=== PATIENT | female | born 1990 | race Caucasian/White ===

== ENCOUNTER → 2021-02-04 08:54 | Outpatient (CLI) | payer OTHER, SELFPAY ==
[2021-01-02 14:37] VITALS: BMI 33.6
[2021-02-04 10:24] LABS: hCG Titer Quant., Serum 411 mIU/mL (1-3)
[2021-02-04 10:29] LABS: Cholesterol 195 mg/dL (200); Glucose 83 mg/dL (74-106); High Density Lipoprotein 52 mg/dL; Thyroid Stim Hormone (TSH) 3.21 uIU/mL (0.358-3.74); Triglycerides 90 mg/dL; Very Low Density Lipoprotein 18 mg/dL (5-40)
[2021-02-06 09:01] LABS: Hepatitis C Antibody Non-Reactive (Nonreactive); Rubella IgG Reactive (Nonreactive)
== END ==
PROVIDERS: Nurse Practitioner Women's Health; PCP Internal Medicine; Referring Provider Obstetrics & Gynecology; Visit Provider Obstetrics & Gynecology
DX: E28.2 Polycystic ovarian syndrome (principal)
CPT/HCPCS: 36415; 80061; 82947; 84443; 84702; 86762; 86803

== ENCOUNTER → 2021-02-07 08:58 | Outpatient (CLI) | payer OTHER, SELFPAY ==
[2021-01-02 14:37] VITALS: BMI 33.6
[2021-02-07 10:14] LABS: hCG Titer Quant., Serum 1412 mIU/mL (1-3)
== END ==
PROVIDERS: PCP Internal Medicine; Visit Provider Nurse Practitioner Women's Health
DX: Z34.90 Encounter for supervision of normal pregnancy, unspecified, unspecified trimester (principal)
CPT/HCPCS: 36415; 84702

== ENCOUNTER → 2021-03-15 | Outpatient (CLI) | payer OTHER, SELFPAY ==
[2021-03-15 09:20] VITALS: BMI 33.6
[2021-03-15 11:34] LABS: Amphetamine Urine VISTA NEGATIVE (<1000 ng/mL); Barbiturate Urine VISTA NEGATIVE (< 200 ng/mL); Benzodiazepine Urine VISTA NEGATIVE (< 200 ng/mL); Cocaine Urine VISTA NEGATIVE (< 300 ng/mL); Ecstacy Urine VISTA POSITIVE (< 500 ng/mL); Methadone Urine VISTA NEGATIVE (< 300 ng/mL); PCP Urine VISTA NEGATIVE (< 25 ng/mL); THC Urine VISTA NEGATIVE (< 50 ng/mL); Vista UDS pH Range 5
[2021-03-17 20:08] LABS: Chlamydia By Nucleic Acid AMP Negative (Negative)
[2021-03-17 20:33] LABS: Gonococcus By Nucleic Acid AMP Negative (Negative)
== END | disposition home or self-care (01) ==
PROVIDERS: PCP Internal Medicine; Visit Provider Obstetrics & Gynecology
DX: Z34.91 Encounter for supervision of normal pregnancy, unspecified, first trimester (principal); Z3A.10 10 weeks gestation of pregnancy
CPT/HCPCS: 80307; 87086; 87088; 87491; 87591

== ENCOUNTER → 2021-03-23 07:35 | Outpatient (CLI) | payer OTHER, SELFPAY ==
[2021-03-15 09:20] VITALS: BMI 33.6
[2021-03-23 08:46] LABS: NATERA MAILED SPECIMEN
[2021-03-23 08:47] LABS: Absolute Lymphocyte Count 2.07 X10^3/uL (0.83-4.51); Absolute Neutrophil Count 7.3 X10^3/uL (2.0-7.7); Basophil# 0.06 X10^3/uL; Basophil% 0.6 % (0-1); Eosinophil# 0.19 X10^3/uL; Eosinophils% 1.9 % (0-5); Hematocrit 41.5 % (37-47); Lymphocyte # 2.07 X10^3/ul (0.83-4.51); Lymphocyte % 20.4 % (19-41); Mean Corp Hgb Conc 33.7 g/dL (32-36); Mean Corpuscular Hgb 29.7 pg (27.0-32.0); Mean Corpuscular Volume 88.1 fL (81-99); Mean Platelet Vol. 8.9 fl (6.2-12.0); Monocyte% 4.9 % (0-10); NRBC Flagged by Analyzer 0 % (0-5); Neutrophil # 7.28 X10^3/uL (2.7-7.7); Neutrophil % 71.7 % (47-70); Platelet Count 404 K/mm3 (150-450); RBC Distribution Width CV 12.4 % (11.6-14.6); RBC Distribution Width SD 40.3 fl (35.1-43.9); Red Blood Count 4.71 M/mm3 (4.2-5.4); White Blood Count 10.2 K/mm3 (4.4-11.0)
[2021-03-23 09:15] LABS: Glucose Challenge Gest 1H 50g 110 mg/dL (70-140)
[2021-03-23 10:22] LABS: HIV - WCH Non-Reactive (Nonreactive); Hepatitis B Surface Antigen Non-Reactive (Nonreactive); Hepatitis C Antibody Non-Reactive (Nonreactive); Rubella IgG Reactive (Nonreactive); Syphilis Antibodies Non-reactive
== END ==
PROVIDERS: PCP Internal Medicine; Referring Provider Obstetrics & Gynecology; Visit Provider Obstetrics & Gynecology
DX: Z34.81 Encounter for supervision of other normal pregnancy, first trimester (principal)
CPT/HCPCS: 36415; 82950; 85025; 86703; 86762; 86780; 86803; 86850; 86900; 86901; 87340

== ENCOUNTER → 2021-04-07 | Outpatient (CLI) | payer OTHER, SELFPAY ==
[2021-04-07 11:40] VITALS: BMI 33.6
== END | disposition home or self-care (01) ==
LOC: LABSPEC 12:43
PROVIDERS: PCP Internal Medicine; Visit Provider Obstetrics & Gynecology
DX: Z34.01 Encounter for supervision of normal first pregnancy, first trimester (principal)
CPT/HCPCS: 87086; 87088

== ENCOUNTER → 2021-05-18 07:52 | Outpatient (CLI) | payer OTHER, SELFPAY ==
--- NOTE | 2021-05-18 07:58 | US_ITS ---
STUDY: SECOND AND THIRD TRIMESTER OBSTETRICAL ULTRASOUND REASON FOR EXAM: Female, 31 years old anatomy LMP: 01/02/2021. TECHNIQUE: Transabdominal and Transvaginal TECHNICAL QUALITY: Adequate. PRIOR ULTRASOUND: None. FINDINGS: There is a single intrauterine fetus. The fetus is in a variable presentation. There is demonstrated cardiac activity with a heart rate of 148 bpm. There is a normal amniotic fluid volume. The largest amniotic fluid pocket measures 4.8 cm x 4.3 cm. The amniotic fluid index (RYANN) is within normal limits. The placenta is 7 There are Grade 0 placental changes. The cervix measures 4.8 cm in length. The bilateral adnexal regions are normal. BIOMETRY: BPD: 4.3 cm: 19 weeks, 0 days HC: 16.4 cm: 19 weeks, 0 days AC: 13.8 cm: 19 weeks, 1 days FL: 3.0 cm: 19 weeks, 2 days CI: 78% FL/BPD: 70% FL/HC: FL/AC: 22% HC/AC: 1.18% age by current US: 19 weeks, 2 days. OLEKSANDR by current US: 10/10/2021. Estimated weight: 24 grams, +/- 43 grams, 36 %. Age by LMP: 19 weeks, 3 days. OLEKSANDR by LMP: 10/09/2021. ANATOMY: Gender: Male Cranium: Normal lateral ventricles. Normal choroid plexus. Normal cerebellum. Normal cisterna magna. Normal face, nose and lips. Chest: The heart is non-visualized. Abdomen/Pelvis: Normal diaphragm. Normal stomach. Normal abdominal wall. Normal cord insertion. Normal 3 vessel cord. Normal kidneys. Normal bladder. Spine: Normal cervical spine. Normal thoracic spine. Normal lumbar spine. Normal sacrum. Extremities: Normal bilateral upper extremities. Normal bilateral lower extremities. IMPRESSION: Single live uterine gestation with mean gestational age of 19 weeks and 2 days. The four-chamber view of the heart was not visualized at this time. Electronically Signed: Krzysztof Crawford MD at 12:33 EDT , Service support , STUDY: FIRST TRIMESTER OBSTETRICAL ULTRASOUND REASON FOR EXAM: Female, 31 years old anatomy LMP: 01/02/2021 TECHNIQUE: Transvaginal TECHNICAL QUALITY: Adequate. PRIOR ULTRASOUND: None. FINDINGS: Transvaginal imaging for measurement of the cervical length. The cervical length measures 4.8 cm. US/OB Anatomy Scan IMPRESSION: Cervical length measures 4.8 cm. Electronically Signed: Krzysztof Crawford MD at 12:40 EDT , Service support ,
== END ==
PROVIDERS: PCP Internal Medicine; Referring Provider Obstetrics & Gynecology; Visit Provider Obstetrics & Gynecology
DX: Z34.91 Encounter for supervision of normal pregnancy, unspecified, first trimester (principal); Z3A.13 13 weeks gestation of pregnancy
CPT/HCPCS: 76805; 76817

== ENCOUNTER → 2021-06-14 07:49 | Outpatient (CLI) | payer OTHER, SELFPAY ==
--- NOTE | 2021-06-14 07:55 | US_ITS ---
STUDY: SECOND AND THIRD TRIMESTER OBSTETRICAL ULTRASOUND - LIMITED REASON FOR EXAM: Female, 31 years old anatomy follow up for 4 chamber heart views LMP: 01/02/2021. PRIOR ULTRASOUND: Comparison is made with prior study dated 05/18/2021. TECHNIQUE: Transabdominal TECHNICAL QUALITY: Adequate. FINDINGS: There is a single intrauterine fetus. The fetus is in an transverse lie with the head on the maternal left side. There is demonstrated cardiac activity with a heart rate of 140 bpm. There is a normal amniotic fluid volume. The largest amniotic fluid pocket measures 6.6 cm x 6.6 cm. The amniotic fluid index (RYANN) is within normal limits. The placenta is posterior in location and is not low lying. There are Grade 0 placental changes. The cervix measures 4.4 cm in length. The 4 chamber view was obtained. This is within normal limits. US/OB Limited (No Biometrics) IMPRESSION: Unremarkable 4 chamber view of the fetus. Electronically Signed: Krzysztof Crawford MD at 15:43 EDT , Service support ,
== END ==
PROVIDERS: PCP Internal Medicine; Referring Provider Obstetrics & Gynecology; Visit Provider Obstetrics & Gynecology
DX: Z34.01 Encounter for supervision of normal first pregnancy, first trimester (principal)
CPT/HCPCS: 76815

== ENCOUNTER → 2021-06-30 08:43 | Outpatient (CLI) | payer OTHER, SELFPAY ==
[2021-06-30 09:29] LABS: Absolute Lymphocyte Count 2.38 X10^3/uL (0.83-4.51); Absolute Neutrophil Count 11.1 X10^3/uL (2.0-7.7); Basophil# 0.07 X10^3/uL; Basophil% 0.5 % (0-1); Eosinophils% 1.3 % (0-5); Hemoglobin 13.2 g/dL (12.0-15.0); Lymphocyte # 2.38 X10^3/ul (0.83-4.51); Mean Corp Hgb Conc 34.7 g/dL (32-36); Mean Corpuscular Hgb 30.3 pg (27.0-32.0); Mean Corpuscular Volume 87.2 fL (81-99); Mean Platelet Vol. 8.4 fl (6.2-12.0); Monocyte# 0.93 X10^3/uL; Monocyte% 6.3 % (0-10); NRBC Flagged by Analyzer 0 % (0-5); Neutrophil # 11.05 X10^3/uL (2.7-7.7); Neutrophil % 74.6 % (47-70); Platelet Count 444 K/mm3 (150-450); RBC Distribution Width CV 13.2 % (11.6-14.6); RBC Distribution Width SD 42.5 fl (35.1-43.9); Red Blood Count 4.36 M/mm3 (4.2-5.4); White Blood Count 14.8 K/mm3 (4.4-11.0)
[2021-06-30 09:59] LABS: Glucose Challenge Gest 1H 50g 111 mg/dL (70-140)
[2021-06-30 13:36] LABS: Amphetamine Urine VISTA NEGATIVE (<1000 ng/mL); Barbiturate Urine VISTA NEGATIVE (< 200 ng/mL); Benzodiazepine Urine VISTA NEGATIVE (< 200 ng/mL); Cocaine Urine VISTA NEGATIVE (< 300 ng/mL); Ecstacy Urine VISTA POSITIVE (< 500 ng/mL); Methadone Urine VISTA NEGATIVE (< 300 ng/mL); PCP Urine VISTA NEGATIVE (< 25 ng/mL); THC Urine VISTA NEGATIVE (< 50 ng/mL); Vista UDS pH Range 5
== END ==
PROVIDERS: PCP Internal Medicine; Referring Provider Obstetrics & Gynecology; Visit Provider Obstetrics & Gynecology
DX: Z34.01 Encounter for supervision of normal first pregnancy, first trimester (principal); Z13.1 Encounter for screening for diabetes mellitus
CPT/HCPCS: 36415; 80307; 82950; 85025

== ENCOUNTER → 2021-07-28 | Outpatient (CLI) | payer OTHER, SELFPAY ==
[2021-07-28 13:43] LABS: Protein, Urine (Random) 13.6 mg/dL (<11.9); Protein:Creat Ratio 177 mg/g CRE (0-200)
== END | disposition home or self-care (01) ==
LOC: LAB 12:50 → LABSPEC 12:54
PROVIDERS: PCP Internal Medicine; Referring Provider Obstetrics & Gynecology; Visit Provider Obstetrics & Gynecology
DX: O16.9 Unspecified maternal hypertension, unspecified trimester (principal); Z3A.00 Weeks of gestation of pregnancy not specified
CPT/HCPCS: 82570; 84156

== ENCOUNTER 2021-09-15 14:07 | Outpatient (CLI) | payer OTHER, SELFPAY | END 2021-09-15 23:59 | disposition home or self-care (01) | LOC: LABSPEC 11-21 14:07 | PROVIDERS: PCP Internal Medicine; Visit Provider Obstetrics & Gynecology | DX: Z34.01 Encounter for supervision of normal first pregnancy, first trimester (principal) | CPT/HCPCS: 87081 ==

== ENCOUNTER 2021-09-18 14:53 | Outpatient (CLI) | payer OTHER, SELFPAY ==
--- NOTE | 2021-09-18 15:04 | US_ITS ---
STUDY: SECOND AND THIRD TRIMESTER OBSTETRICAL ULTRASOUND - LIMITED REASON FOR EXAM: Female, 31 years old growth LMP: 01/02/2021. PRIOR ULTRASOUND: Comparison is made with prior examination dated 06/14/2021. TECHNIQUE: Transabdominal TECHNICAL QUALITY: Adequate. FINDINGS: There is a single intrauterine fetus. The fetus is in a cephalic presentation. There is demonstrated cardiac activity with a heart rate of 153 bpm. There is a normal amniotic fluid volume. The largest amniotic fluid pocket measures 7.8 cm x 4.5 cm. The amniotic fluid index (RYANN) is 23.06 cm. The placenta is posterior in location and is not low lying. There are Grade 2 placental changes. The cervix was not measured due to the head position. BIOMETRY: BPD: 9.32 cm: 37 weeks, 6 days HC: 34.51 cm: 39 weeks, 6 days AC: 34.86 cm: 38 weeks, 5 days FL: 6.59 cm: 33 weeks, 6 days Age by LMP: 37 weeks, 0 days. OLEKSANDR by LMP: 10/09/2021. age by prior US: 36 weeks, 6 days. OLEKSANDR by prior US: 10/10/2021. age by current US: 37 weeks, 4 days. OLEKSANDR by current US: 10/05/2021. Estimated weight: 3242 grams, +/- 486 grams, 59.1 percentile. US/OB Limited With Biometrics IMPRESSION: Single live intrauterine gestation with a mean gestational age of 36 weeks and 6 days. The measurements obtained today fall within the normal expected range. Electronically Signed: Krzysztof Crawford MD at 20:16 EST , Service support ,
== END 2021-09-18 23:59 | disposition short-term general hospital (02) ==
LOC: US 15:02
PROVIDERS: PCP Internal Medicine; Referring Provider Obstetrics & Gynecology; Visit Provider Obstetrics & Gynecology
DX: Z34.90 Encounter for supervision of normal pregnancy, unspecified, unspecified trimester (principal)
CPT/HCPCS: 76816

== ENCOUNTER 2021-09-22 08:27 | Outpatient (CLI) | payer OTHER, SELFPAY ==
[2021-09-22 08:40] LABS: Protein, Urine (Random) 35.9 mg/dL (<11.9); Protein:Creat Ratio 162 mg/g CRE (0-200)
== END 2021-09-22 23:59 | disposition short-term general hospital (02) ==
LOC: LABSPEC 08:28
PROVIDERS: PCP Internal Medicine; Visit Provider Obstetrics & Gynecology
DX: O16.3 Unspecified maternal hypertension, third trimester (principal); Z3A.00 Weeks of gestation of pregnancy not specified
CPT/HCPCS: 82570; 84156

== ENCOUNTER 2021-10-02 12:45 | Inpatient (IN) | payer OTHER, SELFPAY ==
[2021-10-02] VITALS (39 sets, daily range): BP systolic 106–169; BP diastolic 56–99; PULSE 23–123; TEMP 36–36.9; O2SAT 83–100; BMI 38.4
[2021-10-02] MEDS: Lactated Ringers 1,000 ML 50 ML IV (13:31)
[2021-10-02 13:49] LABS: Absolute Neutrophil Count 11.1 X10^3/uL (2.0-7.7); Basophil# 0.05 X10^3/uL; Basophil% 0.3 % (0-1); Eosinophil# 0.08 X10^3/uL; Eosinophils% 0.5 % (0-5); Hematocrit 39.9 % (37-47); Hemoglobin 13.5 g/dL (12.0-15.0); Lymphocyte % 21.1 % (19-41); Mean Corp Hgb Conc 33.8 g/dL (32-36); Mean Corpuscular Hgb 28.9 pg (27.0-32.0); Mean Corpuscular Volume 85.4 fL (81-99); Mean Platelet Vol. 9.1 fl (6.2-12.0); Monocyte# 0.53 X10^3/uL; Monocyte% 3.5 % (0-10); NRBC Flagged by Analyzer 0 % (0-5); Neutrophil # 11.14 X10^3/uL (2.7-7.7); Neutrophil % 73.7 % (47-70); Platelet Count 444 K/mm3 (150-450); RBC Distribution Width CV 13.4 % (11.6-14.6); RBC Distribution Width SD 41.7 fl (35.1-43.9); Red Blood Count 4.67 M/mm3 (4.2-5.4); White Blood Count 15.1 K/mm3 (4.4-11.0)
[2021-10-02] MEDS: Oxytocin 30 units/NS 500 ml 30 UNITS/500 ML IV.SOLN IV (13:51)
[2021-10-02 13:57] LABS: Protein, Urine (Random) 39.9 mg/dL (<11.9); Protein:Creat Ratio 219 mg/g CRE (0-200)
[2021-10-02 14:10] LABS: AST(SGOT) 20 U/L (15-37); Alanine Aminotransfer ALT/SGPT 27 U/L (13-56); Creatinine, Serum 0.89 mg/dL (0.55-1.02); EST Glomerular Filtration Rate 78 mL/min (>60); Est Glom Filt Rate - Afr Amer 94 mL/min (>60); Estimated Creatinine Clearance 84.17 ml/min; Uric Acid 5.8 mg/dL (2.6-6.0)
--- NOTE | 2021-10-02 17:10 | HP.PCM_ITS ---
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 Is patient in pain?: No Allergies penicillin G Allergy (Mild, Verified 10/02/21 11:10) other sulfates Adverse Reaction (Unknown, Uncoded 10/02/21 11:10) unknown Medications docosahexaenoic acid 200 mg capsule mg PO 03/15/21 [History Confirmed 10/02/21] folic acid 400 mcg tablet 0.4 mg PO DAILY 03/15/21 [History Confirmed 10/02/21] vitamin#30 30 mg iron-10 mg iron-folic acid 1 mg-omg3 capsule cap PO 03/15/21 [History Confirmed 10/02/21] bupropion HCl 300 mg 24 hr tablet, extended release 300 mg PO QAM #30 tab 09/29/21 [Rx Confirmed 10/02/21] Last Menstral Period: 01/02/21 Zika: Zika virus screening: Negative : No PFSH PFSH Medical History ADHD Tachycardia Surgical History S/P excision of lipoma Family History Mother Hypertension Father Hypertension Sleep apnea Grandfather Pulmonary fibrosis Grandmother Breast cancer Dementia Grandfather Abdominal aortic aneurysm Dementia Grandmother TIA (transient ischemic attack) Social History adopted: No household members: spouse pets and animals: Yes pets and animals: dog(s) Smoking Status: Never smoker alcohol intake: current details: social; not while substance use type: does not use seatbelt use: always do you feel safe at home: Yes additional social history: Monae vizcarraian 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 upon evaluation her bps are elevated and due to being 39 weeks, recommend proceeding with delivery. denies tamayo bv admits small vb irregular cramping OB Visit OLEKSANDR Calculator Estimated Delivery Date Method Current WG Current Estimate 10/09/21 LMP (Certain) 39w 0d Other Estimates 10/07/21 Ultrasound #1 39w 2d Expected Delivery Route/Plan Labor Preferences- CB/BF classes: watched some you tube videos. labor support person: Negro labor intervention preferences: minimal pain management options preferred: minimal intervention, open to epidural cut cord/dad catch: yes : yes PP control planned: discussed possible routes of delivery and associated risks: discussed possible delivery modalities and possible indications for each including R/B/A of , VAVD, and CS. questions answered. special requests: none Specific Issue/Plans covid status: positive in past, counseled regarding risk of covid in vs vaccination and declined vaccination flu vaccine: given tdap vaccine: given rhogam: na LARC form signed: declines movement and labor precautions reviewed. Problem list reviewed and updated with the most current plan of care details and appropriate orders placed. Relevant counseling for the gestational age provided. Continue routine care and follow up unless otherwise noted in visit notes/problem list details Initial Weight: 210 lb Date EGA Weight BP Urine Prot Glucose FHR FuHt Pres Dilation Effaced St Visit Note 03/15/21 10w 2d 210 lb (+0 oz) 132/86 171 GP - CRL 33mm consistent with LMP. 04/07/21 13w 4d 210 lb (+0 oz) 112/90 150 GP - no cramping or bleeding. Anatomy ordered. 05/05/21 17w 4d 217 lb (+7 lb) 136/86 Negative Negative 145 GP - no cramping or bleeding. Anatomy scheduled for next week. 06/01/21 21w 3d 219 lb (+9 lb) 120/82 Negative Negative 140 SM- no vb cramping doing well 06/30/21 25w 4d 224 lb (+14 lb) 120/78 145 25 SM- n ovb lof good fm no regular ctx 07/14/21 27w 4d 225 lb 8 oz (+15 lb 8 oz) 134/88 Trace Negative 140 28 SM-no vb lof good fm no regular ctx 07/28/21 29w 4d 230 lb 6 oz (+20 lb 6 oz) 136/82 Negative Negative 143 30 JV- bp elevated on arrival, pt rested on left side and pressure came down. She states that this happens often when she is being seen in the office but bp's otherwise are normal. will order baseline pr:cr ratio. 08/11/21 31w 4d 232 lb (+22 lb) 130/102 Negative Negative 140 32 SM- no vb lof good fm nor egular ctx discussed cord blood banking 08/22/21 33w 1d 234 lb 2 oz (+24 lb 2 oz) 128/90 122/80 Negative Negative 147 34 No VB, LOF. Good FM. BP elevated on arrival, states always is and WNL after visit. No CTX. No headaches or vision changes. 09/07/21 35w 3d 234 lb 8 oz (+24 lb 8 oz) 110/90 Negative Negative 135 36 JV- no lof, vaginal bleeding, or dec fm. planning for 36 week growth scan due to hypertension. 09/15/21 36w 4d 240 lb 4 oz (+30 lb 4 oz) 120/86 Negative Negative 137 39 JV- GBS collected. growth scan is next week. pt declines vaginal exam today. no lof, vaginal bleeding, or dec fm. 09/22/21 37w 4d 241 lb (+31 lb) 136/86 1+ Negative 135 38 SM- no vb lof good fm no regualr ctx had some low back pain this last week 09/29/21 38w 4d 243 lb (+33 lb) 138/96 137/90 Negative Negative 150 38 JV- pt c omplains of congestion and cold symptoms. pt declines IOL and wants to take the weekend to rest. risks of abruption and pre-eclampsia discussed. Return saturday for NST and discuss possible pm induction if bp still elevated. 10/02/21 39w 0d 238 lb 8 oz (+28 lb 8 oz) 143/87 Negative Negative 3 to l and d for IOL ACOG First Trimester First Trimester: Desire for , Alcohol, Tobacco Cessation, Illicit/Re creational Drug/Substance Use, Intimate Partner Violence, Barriers to care, Unstable Housing, Communication Barriers, Environmental/Work Hazards, Anticipated Course of Care, Toxoplasmosis Precations, Use of Any medications, Sexual activity, Exercise, Dental Care, Sauna/Hot tub use, Seat Belt use, Childbirth classes/Hospital facilities, , Travel, Indications for Ultrasound and Screening for Aneuploidy Second Trimester Second Trimester: Signs and Symptoms of Labor, Selecting a care provider, Reproductive Life Planning & Contreception, Care Planning, Tobacco Cessation, Depression/Anxiety and Intimate Partner Violence Third Trimester Third Trimester: Pain Management Plans, Labor support person(s), Immediate Larc, Movement Monitoring and Infant Feeding Yes ; Discussed Trial of Labor after Counseling and Discussed Circumcision preference Diagnostics Diagnostics Diagnostics: No Data to Display Details: HIV: Urine Culture: Sequential Screen: NIPT Screen: ROS Const Reports system reviewed and no additional complaints, except as documented Card Reports system reviewed and no additional complaints, except as documented Resp Reports system reviewed and no additional complaints, except as documented GI Reports system reviewed and no additional complaints, except as documented and Reports nausea Reports system reviewed and no additional complaints, except as documented Musc Reports system reviewed and no additional complaints, except as documented Exam Const General: cooperative, healthy appearing, comfortable and anxious HENMT Head: normal to inspection Nose: external nose normal Face and sinus: normal facial exam Neck Neck: normal visual inspection, full ROM and no lymphadenopathy Thyroid: thyroid normal Chest Chest palpation & inspection: normal inspection of the chest Resp Effort & Inspection: normal respiratory effort GI Inspection: normal to inspection Palpation: soft and other (gravid uterus) Other: infant vertex and appropriate size for gestational age Other: Cervical Exam: 3/80/-2 Extrem General: pedal edema Office Procedures Non-stress Test Non-Stress Test Indications for Monitoring: Yes hypertension Heart Rate Baseline: 130 Heart Rate Variability: moderate Movement: Present Heart Rate Accelerations: Present Decelerations: Absent Contractions: Absent Impression: Yes Reactive Non-Stress Test Category 1 Results POC Urinalysis 2 Dip (Clinic) Office Urine Glucose Negative Last Edit by Kitty Stahl on 10/02/21 11:23 Office Urine Protein Negative Last Edit by Kitty Stahl on 10/02/21 11:23 Coding Level of Care Code OB Routine CPT Codes Non-Stress Test (99448) Assessment and Plan Plan Details Other Orders: Orders: OB NST Today O16.3 POC Urinalysis 2 Dip (Clinic) Today
[2021-10-02] MEDS: fentaNYL 100 MCG/2 ML Ampul IV (19:23)
[2021-10-02] MEDS: Ondansetron 4 MG/2 ML Vial IV (20:45)
[2021-10-02] MEDS: Lactated Ringers 500 ML 999 ML IV ×2 (20:50→22:37)
[2021-10-02] MEDS: fentaNYL-bupivacaine (epidural) 100 ML BAG EPIDURAL (21:33)
[2021-10-02] MEDS: Lactated Ringers 1,000 ML 200 ML IV (22:37)
[2021-10-03] VITALS (18 sets, daily range): BP systolic 112–138; BP diastolic 55–94; PULSE 76–104; RESP 14–18; TEMP 36.1–36.6; O2SAT 98–100
[2021-10-03] MEDS: Ondansetron 4 MG/2 ML Vial IV (01:06)
[2021-10-03] MEDS: Lactated Ringers 500 ML 999 ML IV (01:20)
[2021-10-03] MEDS: fentaNYL-bupivacaine (epidural) 100 ML BAG EPIDURAL (02:21)
[2021-10-03] MEDS: Oxytocin 30 units/NS 500 ml 30 UNITS/500 ML IV.SOLN 334 UNITS IV (02:39)
--- NOTE | 2021-10-03 03:21 | OP.PCM_ITS ---
Assessment & Plan (1) : QUALIFIERS: Weeks of gestation: 38 weeks Qualified Code(s): Z3A.38 - 38 weeks gestation of COMMENT: GBS neg., NIPT- low risk male. Declines carrier. needs urine for confirmation of meth- is on wellbutrin may be false positive. anatomy nl (2) Supervision of normal first : QUALIFIERS: Trimester: first trimester Qualified Code(s): Z34.01 - Encounter for supervision of normal first , first trimester COMMENT: PRR OLEKSANDR 10/09/21 Woody Alfonso Spouse:Negro (3) ADD (attention deficit disorder): COMMENT: wellbutrin. (4) Obesity affecting : COMMENT: bmi 34. nl 1 TM gct. encouraged healthy weight gain. (5) History of tetanus, diphtheria, and acellular pertussis booster vaccination (Tdap): COMMENT: 07/14/21 (6) Hypertension affecting : QUALIFIERS: Trimester: third trimester Qualified Code(s): O16.3 - Unspecified maternal hypertension, third trimester COMMENT: may be white coat. ordering baseline pr:cr ratio (7) Non-reassuring heart rate with late deceleration: COMMENT: decision for VAVD (8) Vacuum-assisted vaginal delivery: COMMENT: sec to recurrent decels. cord pH 7.24. SM IOL GHTN (9) Gestational hypertension: COMMENT: iol Maternal Data Information OLEKSANDR Calculator Estimated Delivery Date Method Current WG Current Estimate 10/09/21 LMP (Certain) 39w 1d Other Estimates 10/07/21 Ultrasound #1 39w 3d Vaginal Delivery Operative Information Date of Procedure: 10/03/21 Pre-Operative Diagnosis: IOL ghtn Post-Operative Diagnosis: same Surgery / Procedure Performed: Vacuum Assisted Vaginal Delivery Type of Anesthesia: Epidural Special Medications: none Estimated Blood Loss: 300 Fluids Replaced: crystalloid Findings Description of Procedure: Patient began pushing and developed recurrent late decelerations and therefore the decision was made to proceed with vacuum- assisted vaginal delivery. Head was MAURICIO and the +2 to +3 station with pushing. Patient began pushing and the vacuum was applied into the green zone and pulls were made with 2 contractions total duration 4 minutes with no pop offs, the patient delivered the head in the [MAURICIO] presentation. The head was delivered atraumatically [and a loose nuchal cord ?1 was identified and the delivered through without complication]. The anterior and posterior shoulders delivered without complication followed by the rest of the infant and the infant was placed on the maternal abdomen. Delayed cord clamping was employed for approximately 15 seconds. Cord was clamped and cut and gentle traction was applied to the cord and the placenta delivered spontaneously immediately following it was noted to be intact with three-vessel cord. The perineum and vagina were inspected and noted to have a small third-degree perineal laceration that was repaired in the usual fashion with 3-0 Vicryl Rapide and 2-0 PDS.. EBL was 300 cc. Patient and tolerated delivery well. Presentation: MAURICIO Amniotic Membrane Rupture Type: Artificial Amniotic Fluid Description: Clear Placental Delivery Description: Spontaneous Placenta Disposition: [facility] Cord Vessel Description: 3 Vessels Cord Entanglement: None Delayed Cord Clamping: Yes Post Vaginal Delivery Medications Given After Delivery: IV Pitocin Episiotomy Description: None Laceration: Perineal Extension/lac and 3rd degree Complication Complications: None Procedures Urinary/Genital [id number]: [id number] Vaginal Delivery [facility]
[2021-10-03] MEDS: Senna/Docusate Sodium 1 Tablet PO ×2 (08:21→16:22)
[2021-10-03] MEDS: Naproxen 500 MG Tablet PO ×2 (08:21→16:22)
[2021-10-03] MEDS: Benzocaine/Lanolin/Aloe Vera 1 SPRAY EACH TOPICAL (08:23)
[2021-10-03] MEDS: buPROPion (XL) 150 MG TABLET.XL PO (11:48)
[2021-10-03 15:09] LABS: Amphetamine Urine VISTA NEGATIVE (<1000 ng/mL); Barbiturate Urine VISTA NEGATIVE (< 200 ng/mL); Benzodiazepine Urine VISTA NEGATIVE (< 200 ng/mL); Cocaine Urine VISTA NEGATIVE (< 300 ng/mL); Ecstacy Urine VISTA NEGATIVE (< 500 ng/mL); Methadone Urine VISTA NEGATIVE (< 300 ng/mL); PCP Urine VISTA NEGATIVE (< 25 ng/mL); THC Urine VISTA NEGATIVE (< 50 ng/mL); Vista UDS pH Range 6
[2021-10-03] MEDS: Acetaminophen 500 MG Tablet 1000 MG PO (20:37)
[2021-10-04] MEDS: Naproxen 500 MG Tablet PO ×2 (02:26→10:35)
[2021-10-04 03:15] VITALS: BP 100/55; PULSE 70; RESP 14; TEMP 36.4
[2021-10-04] MEDS: Acetaminophen 500 MG Tablet 1000 MG PO ×2 (07:00→13:38)
[2021-10-04 07:31] VITALS: BP 130/84; PULSE 74; RESP 16; TEMP 36.6; O2SAT 97
--- NOTE | 2021-10-04 08:13 | PN.OBGYN_ITS ---
Subjective Subjective Patient doing well without complaints. Tolerating PO. Ambulating and voiding without difficulty. Feeding well. Denies chest pain, shortness of breath, calf pain/swelling, fevers, chills, lightheadedness. Objective Data Objective Data Vital Signs: Vital Signs Temp Pulse Resp BP Pulse Ox 97.8 F 74 16 130/84 H 97 10/04/21 07:31 10/04/21 07:31 10/04/21 07:31 10/04/21 07:31 10/04/21 07:31 Oxygen Delivery Method Room Air Weight: 238 lb 1.588 oz Body Mass Index (BMI) 38.4 Intake & Output: Intake and Output for Last 24 Hours 10/02/21 10/03/21 10/04/21 23:59 23:59 23:59 Intake Total 1780.45 / 1780.45 1825.62 / 1825.62 Output Total 900 / 900 Balance 1780.45 / 1780.45 925.62 / 925.62 Lab / Micro Data Result Diagrams: 10/02/21 13:35 10/02/21 13:35 Labs: Laboratory Results - last 24 hr 10/03/21 14:45: Urine Opiates Screen NEGATIVE, Urine Methadone Screen NEGATIVE, Ur Barbiturates Screen NEGATIVE, Ur Phencyclidine Scrn NEGATIVE, Ur Amphetamines Screen NEGATIVE, U Methamphetamin-MDMA NEGATIVE, U Benzodiazepines Scrn NEGA TIVE, Urine Cocaine Screen NEGATIVE, U Cannabinoids Screen NEGATIVE, Ur Drug Screen Comment Micro: Microbiology 10/02/21 13:35 Nasal Secretion SARS-CoV-2 Antigen (Rapid) - Final Physical Exam Const alert and oriented x3 HEENT normocephalic Eyes PERRL Neck full ROM Resp normal respiratory effort GI soft to palpation GI Narrative: FF below U Assessment & Plan (1) Vacuum-assisted vaginal delivery: COMMENT: sec to recurrent decels. cord pH 7.24. SM IOL GHTN PLAN: s/p VAVD PPD # 1 1. routine post delivery care 2. breast feeding- support given 3. rh positive 4. rubella immune 5. BPs stable 6. home today
--- NOTE | 2021-10-04 08:14 | PCM.DC.SUM ---
Providers Date of Admission: 10/02/21 Primary Care Physician: Dr. Karon Zimmer DO Reason For Visit: INDUCTION Diagnosis Discharge Diagnosis (1) Vacuum-assisted vaginal delivery: Status: Acute Code(s): Z37.9 - Outcome of delivery, unspecified Medications at Discharge Home Medications docosahexaenoic acid 200 mg capsule mg PO 03/15/21 bupropion HCl [Wellbutrin XL] 150 mg PO DAILY #30 tab 10/03/21 naproxen 250 - 500 mg PO Q8H PRN PRN #30 tab 10/03/21 sennosides [Senokot Extra Strength] 17.2 mg PO BID #60 tab 10/03/21 Weight / BMI Weight Weight: 238 lb 1.588 oz Body Mass Index (BMI) 38.4 ABG / Lab / Microbiology Data Result Diagrams: 10/02/21 13:35 10/02/21 13:35 Laboratory: Laboratory Results - last 24 hr 10/03/21 14:45: Urine Opiates Screen NEGATIVE, Urine Methadone Screen NEGATIVE, Ur Barbiturates Screen NEGATIVE, Ur Phencyclidine Scrn NEGATIVE, Ur Amphetamines Screen NEGATIVE, U Methamphetamin-MDMA NEGATIVE, U Benzodiazepines Scrn NEGATIVE, Urine Cocaine Screen NEGATIVE, U Cannabinoids Screen NEGATIVE, Ur Drug Screen Comment Microbiology: Microbiology 10/02/21 13:35 Nasal Secretion SARS-CoV-2 Antigen (Rapid) - Final D/C Instructions Discharge Diet: No restrictions Discharge Activity: Return to Normal Activity, May Not Drive (while taking narcotic pain medications.) and May Shower May resume sexual activity in: 4 weeks (nothing in the vagina for 4 weeks.) Additional Activity Instructions: Nothing in the vagina for 4-6 weeks. You may return to work/school in 6 weeks. Call your doctor if your incision/area has: Continuous Slow Oozing, Sudden Increased Bleeding, Increased Pain/ Swelling, Increased Redness and Foul Smelling Discharge When: Call to make an appointment with your doctor in 6 weeks. If you had elevated Blood Pressure or 4th degree laceration you will need to be seen in 2 weeks. Meaningful Use Info Meaningful Use Diagnoses (Choose all that apply): None applicable Discharge Plan Admission Admit Date/Time: 10/02/21 12:45 Primary Reason for Your Visit: vaginal delivery Attending Provider: Beba Abarca Primary Care Provider: Karon Zimmer Discharge Orders/Prescriptions Prescriptions: New Senokot Extra Strength 17.2 mg tablet 17.2 mg PO BID Qty: 60 RF: 1 naproxen 250 MG tablet 250 - 500 mg PO Q8H PRN PRN (Reason: MILD PAIN) Qty: 30 RF: 1 bupropion HCl [Wellbutrin XL] 150 mg tablet extended release 24 hr 150 mg PO DAILY Qty: 30 RF: 12 Continued DHA 200 mg capsule PO RF: 0 Discontinued PNV #[id number] 30 mg iron-10 mg iron-1 mg capsule PO RF: 0 folic acid 400 mcg tablet 0.4 mg PO DAILY RF: 0 magnesium RF: 0 bupropion HCl [Wellbutrin XL] 300 mg tablet extended release 24 hr 300 mg PO QAM Qty: 30 RF: 4 Referrals / Follow Up: Karon Zimmer DO [Primary Care Provider] - Disposition Disposition (needs filled in before D/C Order can be placed): Home, Self Care
[2021-10-04] MEDS: Senna/Docusate Sodium 1 Tablet PO (10:36)
[2021-10-04] MEDS: buPROPion (XL) 150 MG TABLET.XL PO (10:36)
--- NOTE | 2021-10-04 11:41 | CASEMGMT ---
Social Work Assessment Labor and Delivery Unit Date/Time of Referral: 10/03/21, 14:24 Referred By: Dr. oS Date/Time of Intervention: 10/04/21, 8:45am Reason for Referral: Mental Health History obtained from: DARÍO Household composition: MOB, KEVAN, baby Kaden. MOB and FOB have been together for 9 years Parent/Guardian Status: MOB and FOB have guardianship of this baby Medical History: MOB: ADHD, tachycardia. Baby: Born 10/03/21 at 2:36am, 3485 g, Apgars 7 at one minute and 9 at 5 minutes. Financial Status/Education Status: Both MOB and FOB work. 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 DARÍO plans to return to work after 12 weeks. She anticipates her parents will care for Kaden when she returns to work. supplies: They have all needed supplies including car seat, crib, diapers, clothing, wipes, bottles. MOB plans to breast feed Childcare/Caregivers: MOB, FOB, MOB's parents Transportation: They have 2 vehicles. Programs/Agencies involved: None Children's Services/Legal Issues: None Behavioral Health History: MOB: ADHD, FOB: ADD. Substance Abuse: No history for MOB and FOB, as per MOB. She denies substance abuse. SW spoke w/MOB about the ADHD, Wellbutrin and positive tox screens. MOB explains she used to take Adderall but while has been taking Wellbutrin. She states it does not help as much as the Adderall but is safer for the baby. SW spoke w/her about the positive tox screens for methamphetamine during (03/15/21 and 06/30/21). MOB states it is thought to be a false positive from the Wellbutrin. (This is also documented by Dr. So in the OR report dated 10/03/21--needs urine for confirmation of meth- is on wellbutrin may be false positive. Dr. Cachorro Carmona also wrote in the baby's H&P on 10/03/21, had multiple positive tox screens earlier in likely related to false positive from Wellbutrin. MOB and baby's tox screen on this admission was negative. SW inquired w/pt why this may be, as she is still on Wellbutrin. MOB explained she cut her dose in half from 300mg to 150mg in anticipation of . This may be impacting the tox screen. MOB denies using crystal meth. She states she works with clients all the time who use and she sees what it does to people, has no interest in using. Family/Social Stressors: None reported Support Systems: MOB's parents, aunt, uncle, FOB's parents, friends Depression/Shaken Baby/Safe Sleeping/Help Me Grow: SW reviewed information on all of these topics and provided information to MOB on all topics. She will speak w/central supply assistant if she thinks Help Me Grow would be helpful, for a referral. We spoke in particular about depression, reviewed warning signs. SW encouraged MOB to watch for warning signs and ask for help if she needs help. List of mental health providers in the community provided. 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 Pt states understanding. Assessment: MOB upfront w/SW, answered all questions appropriately and completely. Baby in bassinet sleeping, MOB looking at baby, paying attention to baby, stroking baby. MOB appropriate w/care and attention toward baby. Plan: MOB and FOB to take baby home at discharge. staff will be following for results of meconium. If the meconium results are negative, no further social service needs are anticipated at this time. RASHI Mendoza
[2021-10-04 13:35] VITALS: BP 132/75; PULSE 76; RESP 16; TEMP 36.1
[2021-10-11 22:07] LABS: Amphetamine Ur Confirm Negative (Cutoff=500)
--- NOTE | 2021-11-08 17:16 | CASEMGMT ---
Social Work Labor and Delivery MOB's amphetamine confirmation negative, as well as meconium drug screen results are back and negative for drugs of abuse. No further referrals indicated. -RASHI Siddiqui, GELATIN POWDER MIXER
== END 2021-10-04 16:30 | disposition home or self-care (01) | DRG 768 ==
PROVIDERS: Admitting Provider Obstetrics & Gynecology; PCP Internal Medicine; Visit Provider Obstetrics & Gynecology
DX: O76 Abnormality in fetal heart rate and rhythm complicating labor and delivery (principal); Z37.0 Single live birth; O70.20 Third degree perineal laceration during delivery, unspecified; E66.9 Obesity, unspecified; O13.4 Gestational [pregnancy-induced] hypertension without significant proteinuria, complicating childbirth; O99.344 Other mental disorders complicating childbirth; F90.9 Attention-deficit hyperactivity disorder, unspecified type; O69.81X0 Labor and delivery complicated by cord around neck, without compression, not applicable or unspecified; Z3A.38 38 weeks gestation of pregnancy; O99.214 Obesity complicating childbirth
CPT/HCPCS: 59025; 59050; 80307; 82565; 82570; 84156; 84450; 84460; 84550; 85025; 86850; 86900; 86901; 87426; 99218; J7120; G0378; J2405

== ENCOUNTER → 2022-10-12 | Outpatient (CLI) | payer OTHER, SELFPAY ==
[2022-10-21 11:46] LABS: HPV APTIMA, High Risk Negative (Negative)
== END | disposition home or self-care (01) ==
LOC: LABSPEC 14:37
PROVIDERS: PCP Internal Medicine; Referring Provider Obstetrics & Gynecology; Visit Provider Obstetrics & Gynecology
DX: Z01.419 Encounter for gynecological examination (general) (routine) without abnormal findings (principal)
CPT/HCPCS: 87624; 88175; G0145

== ENCOUNTER → 2024-04-25 | Outpatient (CLI) | payer BC, SELFPAY ==
[2024-04-25 10:46] LABS: Absolute Lymphocyte Count 2.43 X10^3/uL (0.83-4.51); Basophil# 0.06 X10^3/uL; Basophil% 0.8 % (0-1); Color, Urine Yellow (Yellow); Eosinophil# 0.24 X10^3/uL; Eosinophils% 3.3 % (0-5); Glucose, Dipstick Normal (Normal); Hematocrit 42.1 % (37-47); Hemoglobin 14.5 g/dL (12.0-15.0); Ketone-Dipstick Negative (Negative); Leukocyte Esterase-Dipstick 100 /ul (Negative); Lymphocyte # 2.43 X10^3/ul (0.83-4.51); Lymphocyte % 33.7 % (19-41); Mean Corp Hgb Conc 34.4 g/dL (32-36); Mean Corpuscular Hgb 29.7 pg (27.0-32.0); Mean Corpuscular Volume 86.3 fL (81-99); Mean Platelet Vol. 8.5 fl (6.2-12.0); Monocyte# 0.44 X10^3/uL; Monocyte% 6.1 % (0-10); NRBC Flagged by Analyzer 0 % (0-5); Neutrophil # 4.02 X10^3/uL (2.7-7.7); Neutrophil % 55.8 % (47-70); Nitrite-Dipstick Negative (Negative); Occult Blood-Urine 10 /ul (Negative); Platelet Count 437 K/mm3 (150-450); Protein-Dipstick 15 mg/dl (Negative); RBC Distribution Width CV 13.2 % (11.6-14.6); RBC Distribution Width SD 41.5 fl (35.1-43.9); Red Blood Count 4.88 M/mm3 (4.2-5.4); Specific Gravity, Urine 1.015 (1.002-1.030); Urine Bilirubin Dipstick Negative (Negative); Urine Clarity Sl. Cloudy (Clear); Urine Urobilinogen Normal (Normal); Urine pH 6.5 (5.0 - 8.0); White Blood Count 7.2 K/mm3 (4.4-11.0)
[2024-04-25 13:08] LABS: AST(SGOT) 14 U/L (15-37); Alanine Aminotransfer ALT/SGPT 40 U/L (13-56); Albumin, Serum 3.9 g/dL (3.2-5.0); Alkaline Phosphatase 120 U/L (45-117); Anion Gap 5 (5-15); BUN 8 mg/dL (7-18); BUN/Creat Ratio 10.9 RATIO (10-20); Calcium,Total 9.6 mg/dL (8.5-10.1); Chloride 107 mmol/L (98-107); Cholesterol 197 mg/dL (200); Creatinine, Serum 0.73 mg/dL (0.55-1.02); EST Glomerular Filtration Rate 95 mL/min (>60); Est Glom Filt Rate - Afr Amer 116 mL/min (>60); Globulin 3.9 g/dL (2.2-4.2); Glucose 87 mg/dL (74-106); High Density Lipoprotein 47 mg/dL; Potassium 3.5 mmol/L (3.5-5.1); Protein, Total 7.8 g/dL (6.4-8.2); Sodium Level 137 mmol/L (136-145); Triglycerides 100 mg/dL; Very Low Density Lipoprotein 20 mg/dL (5-40)
[2024-04-28 08:04] LABS: Vitamin B12 518 pg/mL (211-911)
[2024-04-28 12:07] LABS: Vitamin D 1,25-Dihydroxy 79.8 pg/mL (24.8-81.5)
== END | disposition home or self-care (01) ==
LOC: LAB 09:58
PROVIDERS: PCP Internal Medicine; Referring Provider Nurse Practitioner Family; Visit Provider Nurse Practitioner Family
DX: M54.6 Pain in thoracic spine (principal); Z13.21 Encounter for screening for nutritional disorder; E78.5 Hyperlipidemia, unspecified
CPT/HCPCS: 36415; 80053; 80061; 81002; 82607; 82652; 82746; 84443; 85025

== ENCOUNTER → 2024-05-22 | Outpatient (CLI) | payer BC, SELFPAY ==
[2024-05-22 16:49] LABS: Protein:Creat Ratio 126 mg/g CRE (0-200)
[2024-05-25 21:07] LABS: Chlamydia By Nucleic Acid AMP Negative (Negative); Gonococcus By Nucleic Acid AMP Negative (Negative)
== END | disposition home or self-care (01) ==
LOC: LABSPEC 15:56
PROVIDERS: PCP Internal Medicine; Referring Provider Advanced Practice Midwife; Visit Provider Advanced Practice Midwife
DX: O99.210 Obesity complicating pregnancy, unspecified trimester (principal); Z87.59 Personal history of other complications of pregnancy, childbirth and the puerperium; Z3A.00 Weeks of gestation of pregnancy not specified
CPT/HCPCS: 82570; 84156; 87086; 87088; 87491; 87591

== ENCOUNTER → 2024-06-09 | Outpatient (CLI) | payer BC, SELFPAY ==
[2024-06-09 09:05] LABS: Absolute Lymphocyte Count 1.82 X10^3/uL (0.83-4.51); Absolute Neutrophil Count 6.7 X10^3/uL (2.0-7.7); Basophil# 0.04 X10^3/uL; Basophil% 0.4 % (0-1); Eosinophil# 0.22 X10^3/uL; Eosinophils% 2.3 % (0-5); Hematocrit 41.3 % (37-47); Hemoglobin 13.8 g/dL (12.0-15.0); Lymphocyte # 1.82 X10^3/ul (0.83-4.51); Lymphocyte % 19.3 % (19-41); Mean Corp Hgb Conc 33.4 g/dL (32-36); Mean Corpuscular Hgb 29.3 pg (27.0-32.0); Mean Corpuscular Volume 87.7 fL (81-99); Mean Platelet Vol. 8.5 fl (6.2-12.0); Monocyte# 0.58 X10^3/uL; Monocyte% 6.2 % (0-10); NRBC Flagged by Analyzer 0 % (0-5); Neutrophil # 6.72 X10^3/uL (2.7-7.7); Neutrophil % 71.4 % (47-70); Platelet Count 365 K/mm3 (150-450); RBC Distribution Width CV 12.7 % (11.6-14.6); RBC Distribution Width SD 40.9 fl (35.1-43.9); Red Blood Count 4.71 M/mm3 (4.2-5.4); White Blood Count 9.4 K/mm3 (4.4-11.0)
[2024-06-09 09:31] LABS: ALB/GLOB Ratio 0.9 RATIO (0.9-2.4); AST(SGOT) 15 U/L (15-37); Alanine Aminotransfer ALT/SGPT 23 U/L (13-56); Albumin, Serum 3.5 g/dL (3.2-5.0); Alkaline Phosphatase 101 U/L (45-117); Anion Gap 7 (5-15); BUN 5 mg/dL (7-18); BUN/Creat Ratio 8.9 RATIO (10-20); Chloride 105 mmol/L (98-107); Creatinine, Serum 0.56 mg/dL (0.55-1.02); EST Glomerular Filtration Rate 130 mL/min (>60); Est Glom Filt Rate - Afr Amer 157 mL/min (>60); Globulin 3.9 g/dL (2.2-4.2); Glucose 96 mg/dL (74-106); Potassium 3.6 mmol/L (3.5-5.1); Protein, Total 7.4 g/dL (6.4-8.2); Sodium Level 137 mmol/L (136-145)
[2024-06-09 12:06] LABS: Hemoglobin A1c 5.3 % (3.8-5.6)
[2024-06-16 17:07] LABS: HIV 1/0/2 SCREEN Non Reactive (Non Reactive); Hep C Antibodies Non Reactive (Non Reactive); Syphilis Antibodies Non Reactive (Non Reactive)
== END | disposition home or self-care (01) ==
PROVIDERS: PCP Nurse Practitioner Family; Referring Provider Advanced Practice Midwife; Visit Provider Advanced Practice Midwife
DX: O09.521 Supervision of elderly multigravida, first trimester (principal); Z3A.00 Weeks of gestation of pregnancy not specified
CPT/HCPCS: 36415; 80053; 83036; 85025; 86703; 86762; 86780; 86803; 86850; 86900; 86901; 87340

== ENCOUNTER 2024-06-19 13:43 | Outpatient (CLI) | payer BC, SELFPAY ==
[2024-06-19 15:38] LABS: Hepatitis B Surface Antigen Non-Reactive (Nonreactive); Rubella IgG Reactive (Nonreactive)
== END 2024-06-19 23:59 | disposition home or self-care (01) ==
LOC: WOBLAB 13:44
PROVIDERS: PCP Nurse Practitioner Family; Referring Provider Advanced Practice Midwife; Visit Provider Advanced Practice Midwife
DX: Z34.90 Encounter for supervision of normal pregnancy, unspecified, unspecified trimester (principal)
CPT/HCPCS: 86762; 87340

== ENCOUNTER → 2024-07-17 | Outpatient (CLI) | payer BC, SELFPAY | END | disposition home or self-care (01) | PROVIDERS: PCP Nurse Practitioner Family; Referring Provider Obstetrics & Gynecology; Visit Provider Obstetrics & Gynecology | DX: Z34.00 Encounter for supervision of normal first pregnancy, unspecified trimester (principal) ==

== ENCOUNTER → 2024-10-08 | Outpatient (CLI) | payer BC, SELFPAY ==
[2024-10-08 11:21] LABS: Absolute Lymphocyte Count 2.22 X10^3/uL (0.83-4.51); Absolute Neutrophil Count 10.6 X10^3/uL (2.0-7.7); Basophil# 0.06 X10^3/uL; Basophil% 0.4 % (0-1); Eosinophil# 0.34 X10^3/uL; Eosinophils% 2.4 % (0-5); Hemoglobin 12.1 g/dL (12.0-15.0); Lymphocyte # 2.22 X10^3/ul (0.83-4.51); Lymphocyte % 15.7 % (19-41); Mean Corp Hgb Conc 33.6 g/dL (32-36); Mean Corpuscular Hgb 29.7 pg (27.0-32.0); Mean Corpuscular Volume 88.5 fL (81-99); Monocyte% 5.7 % (0-10); NRBC Flagged by Analyzer 0 % (0-5); Neutrophil # 10.58 X10^3/uL (2.7-7.7); Neutrophil % 74.8 % (47-70); Platelet Count 410 K/mm3 (150-450); RBC Distribution Width CV 13.2 % (11.6-14.6); RBC Distribution Width SD 42.6 fl (35.1-43.9); Red Blood Count 4.07 M/mm3 (4.2-5.4); White Blood Count 14.1 K/mm3 (4.4-11.0)
[2024-10-08 11:30] LABS: Glucose Challenge Gest 1H 50g 164 mg/dL (70-140)
[2024-10-08 14:00] LABS: Syphilis Antibodies Non-reactive
[2024-10-13 14:43] LABS: HIV - WCH Non-Reactive (Nonreactive)
== END | disposition home or self-care (01) ==
PROVIDERS: PCP Nurse Practitioner Family; Referring Provider Obstetrics & Gynecology; Visit Provider Obstetrics & Gynecology
DX: O09.90 Supervision of high risk pregnancy, unspecified, unspecified trimester (principal); Z3A.00 Weeks of gestation of pregnancy not specified; Z13.1 Encounter for screening for diabetes mellitus
CPT/HCPCS: 36415; 82950; 85025; 86703; 86780

== ENCOUNTER → 2024-10-14 | Outpatient (CLI) | payer BC, SELFPAY ==
[2024-10-14 07:17] LABS: Hematocrit 34.8 % (37-47); Hemoglobin 11.9 g/dL (12.0-15.0); Mean Corp Hgb Conc 34.2 g/dL (32-36); Mean Corpuscular Hgb 29.5 pg (27.0-32.0); Mean Corpuscular Volume 86.4 fL (81-99); Mean Platelet Vol. 8.5 fl (6.2-12.0); Platelet Count 385 K/mm3 (150-450); RBC Distribution Width CV 13.2 % (11.6-14.6); RBC Distribution Width SD 41.2 fl (35.1-43.9); Red Blood Count 4.03 M/mm3 (4.2-5.4); White Blood Count 14.1 K/mm3 (4.4-11.0)
[2024-10-14 07:59] LABS: Glucose GTT-Gestation. Fasting 101 mg/dL (<105)
[2024-10-14 08:36] LABS: Glucose GTT-Gestational 1 Hr 196 mg/dL (<190)
[2024-10-14 09:42] LABS: Glucose GTT-Gestational 2 Hr 194 mg/dL (<165)
[2024-10-14 10:41] LABS: Glucose GTT-Gestational 3 Hr 150 L (<145)
== END | disposition home or self-care (01) ==
LOC: LAB 06:57
PROVIDERS: Obstetrics & Gynecology; PCP Nurse Practitioner Family; Referring Provider Obstetrics & Gynecology; Visit Provider Obstetrics & Gynecology
DX: O99.210 Obesity complicating pregnancy, unspecified trimester (principal); E66.9 Obesity, unspecified; O09.529 Supervision of elderly multigravida, unspecified trimester; Z3A.00 Weeks of gestation of pregnancy not specified; Z13.1 Encounter for screening for diabetes mellitus
CPT/HCPCS: 36415; 82951; 82952; 85027

== ENCOUNTER 2024-11-19 12:15 | Outpatient (RCR) | payer BC, SELFPAY | END 2024-11-23 23:59 | LOC: NS 12:15 | PROVIDERS: PCP Nurse Practitioner Family; Referring Provider Obstetrics & Gynecology; Visit Provider Obstetrics & Gynecology | DX: Z71.3 Dietary counseling and surveillance (principal); O24.419 Gestational diabetes mellitus in pregnancy, unspecified control; Z3A.00 Weeks of gestation of pregnancy not specified | CPT/HCPCS: 97802; 97803 ==

== ENCOUNTER → 2024-12-03 | Outpatient (CLI) | payer BC, SELFPAY | END | disposition home or self-care (01) | LOC: LABSPEC 12:00 | PROVIDERS: PCP Nurse Practitioner Family; Referring Provider Obstetrics & Gynecology; Visit Provider Obstetrics & Gynecology | DX: O09.90 Supervision of high risk pregnancy, unspecified, unspecified trimester (principal); Z3A.00 Weeks of gestation of pregnancy not specified | CPT/HCPCS: 87077; 87081; 87186 ==

== ENCOUNTER → 2024-12-08 | Outpatient (CLI) | payer BC, SELFPAY ==
--- NOTE | 2024-12-08 13:18 | US_ITS ---
PROCEDURE: OB LIMITED WITH BIOMETRICS 12/08/2024 REASON FOR EXAM: GROWTH TECHNIQUE: High resolution obstetric ultrasound performed using a 2D transducer. Standard views obtained, including biometry, anatomy survey, and Doppler studies. COMPARISON: None FINDINGS Number: 1 Position: Vertex Placental Position: Posterior and not low-lying. Placental grade: 2 Placental Abnormalities: No evidence of previa or accreta. DIMENSIONS: Biparietal Diameter: 9.03 cm: 36 weeks and 4 days: 60 percentile/ Head Circumference: 33.1 cm: 37 weeks and 5 days: 47th percentile/ Abdominal Circumference: 34.28 cm: 38 weeks and 1 day: 92nd percentile/ Femur Length: 6.9 cm: 35 weeks and 3 days: 17 percentile/ ESTIMATED WEIGHT: 3182 g plus/-477 g ESTIMATED WEIGHT PERCENTILE (24+ weeks): 71 ESTIMATED GESTATIONAL AGE: Baseline: 36 weeks and 5 days By Ultrasound: 37 weeks and 0 days ESTIMATED DATE OF DELIVERY: Baseline: December 31, 2024 By Ultrasound: December 29, 2024 BIOPHYSICAL ASSESSMENT: Amniotic Fluid Volume: 5.3 cm Amniotic Fluid Index: 15.9 (8-24 cm normal range) Cardiac Motion: 152 beats per minute (average) Trunk and Limb Motion: Present. MATERNAL ANATOMY: Adnexa: Neither maternal ovary is successfully identified. US/OB Limited With Biometrics IMPRESSION: Single live intrauterine gestation with a mean gestational age of 37 weeks. Reading Location: [place] [id number]
== END | disposition home or self-care (01) ==
LOC: US 13:17
PROVIDERS: PCP Nurse Practitioner Family; Referring Provider Nurse Practitioner Women's Health; Visit Provider Nurse Practitioner Women's Health
DX: O24.419 Gestational diabetes mellitus in pregnancy, unspecified control (principal); Z3A.00 Weeks of gestation of pregnancy not specified
CPT/HCPCS: 76816

== ENCOUNTER 2024-12-28 07:16 | Inpatient (IN) | payer BC, SELFPAY ==
[2024-12-28] VITALS (38 sets, daily range): BP systolic 122–172; BP diastolic 65–91; PULSE 67–100; RESP 14–16; TEMP 35.7–36.3; O2SAT 94–100; BMI 39.2
[2024-12-28] MEDS: Lactated Ringers 1,000 ML 50 ML IV (07:45)
--- NOTE | 2024-12-28 08:13 | HP.PCM.OB_ITS ---
HPI - General General Date of Admission: 12/28/24 HPI Narrative CLARKE ROSEN, is a 34 y/o @ 39 weeks 4 days who presents to L&D for induction of labor for GDM and ama. She is gbs pos and needs vanc for pnc G allergy and resistance to clinda. Maternal Data Information OLEKSANDR Calculator Estimated Delivery Date Method Current WG Current Estimate 12/31/24 LMP (Certain) 39w 4d Other Estimates 01/02/25 Ultrasound #1 39w 2d PFSH PFSH Medical History Seasonal allergies MRSA infection Gestational HTN Tachycardia ADHD Home Medications ?Medication ?Instructions ?Recorded ?Last Taken ?Type alpha lipoic acid 600 mg capsule 600 mg PO QDAY Unknown History atomoxetine 60 mg capsule 60 mg PO QDAY 05/08/24 Unkno wn History (Strattera) biotin 10,000 mcg capsule mcg PO 05/08/24 Unknown Hist ory multivitamin no.47-iron fum 27 cap PO DAILY 05/08/24 U nknown History mg-folate no.1 1 mg-dha 300 mg capsule (PNV-DHA) aspirin 81 mg tablet,delayed 81 mg PO QDAY 06/19/24 Un known History release blood sugar diagnostic (Blood #120 ea 10/14/24 Unknown Rx Glucose Test strips) blood-glucose meter #1 ea 10/14/24 Unknown Rx lancets #200 ea 10/14/24 Unknown Rx famotidine 20 mg tablet (Pepcid) 20 mg PO BID #60 tabs 11/16/24 Unknown Rx Allergy/AdvReac Type Severity Reaction Status Date / Time penicillin G Allergy Mild other Verified 12/25/24 13:40 Family History Mother Hypertension Elevated cholesterol Father Hypertension Sleep apnea Elevated cholesterol Grandfather Pulmonary fibrosis Grandmother Breast cancer Dementia Family history of recurrent miscarriage maternal Grandfather Abdominal aortic aneurysm Dementia Grandmother TIA (transient ischemic attack) Surgical History History of removal of skin mole S/P excision of lipoma Social History adopted: No household members: spouse and children number of children: 1 current occupational status: employed 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 @ [employer] pets and animals: Yes pets and animals: dog(s) history of recent travel: No sexually active: Yes Smoking Status: Never smoker alcohol intake: current details: social; not while substance use type: does not use well-balanced diet: about half the time caffeine: No eating out: rarely or never during the past year weight has: remained stable what type of physical activity do you participate in: none gale/oriental orthodox: Methodist seatbelt use: always do you feel safe at home: Yes 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 Date Name GA/Weeks Outcome Route Bth Weight Gen Labor Lgth Anesthesia Del Locatn Provider FOB 10/03/21 Alfonso 39 live - full term vacuum 7#11oz Male epid ural [facility] Delivery Date: 10/03/21 Last Updated by: Belen Rios IOL GHTN VAVD decels 3rd degree laceration Visit Details Expected Delivery Route/Plan Labor Preferences- CB/BF classes: no labor support person: Negro labor intervention preferences: [] pain management options preferred: epidural cut cord/dad catch: cord : yes PP control planned: discussed discussed possible routes of delivery and associated risks: [] special requests: [] Plans Covid status: [] Flu vaccine: declined Tdap vaccine: given Rhogam: na LARC form signed: yes Problem list reviewed and updated with the most current plan of care details and appropriate orders placed. Relevant counseling for the gestational age provided. Continue routine care and follow up unless otherwise noted in visit notes/problem list details OB Flowsheet Initial Weight: Not Recorded Date -?-?-?-?-?-?-?-?-?-?-?-?- EGA Weight BP Urine Prot -?-?-?-?-?-?-?-?-?-?-?-?- Glucose FHR FuHt Pres Dilation -?-?-?-?-?-?-?-?-?-?-?-?- Effaced St Visit Note 05/22/24 -?-?-?-?-?-?-?-?-?-?-?-?- 8w 1d 213 lb 147/86 -?-?-?-?-?-?-?-?-?-?-?-?- 175 -?-?-?-?-?-?-?-?-?-?-?-?- KW- CRL cons wit h dates. Accepts NIPT. PIH labs drawn with NOB 06/19/24 -?-?-?-?-?-?-?-?-?-?-?-?- 12w 1d 217 lb 145/93 Negative -?-?-?-?-?-?-?-?-?-?-?-?- Negative 155 -?-?-?-?-?-?-?-?-?-?-?-?- SM- no vb occaso inal cramping 07/17/24 -?-?-?-?-?-?-?-?-?-?-?-?- 16w 1d 224 lb 2 oz 138/89 Nega tive -?-?-?-?-?-?-?-?-?-?-?-?- Negative 150 -?-?-?-?-?-?-?-?-?-?-?-?- SM- no vb crampi gli, discussed checking bps at home to ensure they are normal. was normal today. 08/14/24 -?-?-?-?-?-?-?-?-?-?-?-?- 20w 1d 227 lb 8 oz 115/80 Nega tive -?-?-?-?-?-?-?-?-?-?-?-?- Negative 1 140 -?-?-?-?-?-?-?-?-?-?-?-?- JV- anatomy scan was done but results not in. She states needs to go back in 2 weeks for more views. bp's at home are 120's-140'a/ 80'a-90's 09/17/24 -?-?-?-?-?-?-?-?-?-?-?-?- 25w 0d 229 lb 2 oz 133/84 Nega tive -?-?-?-?-?-?-?-?-?-?-?-?- Negative 141 -?-?-?-?-?-?-?-?-?-?-?-?- JV- rpt anatomy scan was normal but the tech was very rude at [facility]. pt is upset that her mom did not get pics. we will bring her back at 36 weeks in our office when we do the RYANN to give them pics. 10/08/24 -?-?-?-?-?-?-?-?-?-?-?-?- 28w 0d 233 lb 4 oz 126/82 Nega tive -?-?-?-?-?-?-?-?-?-?-?-?- Negative 138 30 -?-?-?-?-?-?-?-?-?-?-?-?- JV- no lof, vagi nal bleeding, or dec fm. no complaints. tdap and 28 week labs today. 11/02/24 -?-?-?-?-?-?-?-?-?-?-?-?- 31w 4d 231 lb 8 oz 118/82 Nega tive -?-?-?-?-?-?-?-?-?-?-?-?- Negative 148 32 -?-?-?-?-?-?-?--?-?-?-?-?- MH-No VB. LOF. Good FM. Reviewed kick counts. Ordered 36wk growth US/RYANN: now GDM and all reading WNL. Larc done 11/16/24 -?-?-?-?-?-?-?-?-?-?-?-?- 33w 4d Negative -?-?-?-?-?-?-?-?-?-?-?-?- Negative 160 35 -?-?-?-?-?-?-?-?-?-?-?-?- KW- no vb/lof/ct x. good fm. has growth US scheduled for 36 weeks KW- no vb/lof/ctx. good fm. blood sugars reviewed and within range. has growth US scheduled for 36 weeks 12/03/24 -?-?-?-?-?-?-?-?-?-?-?-?- 36w 0d 233 lb 8 oz 130/87 Nega tive -?-?-?-?-?-?-?-?-?-?-?-?- Negative 152 40 Cephalic 1 -?-?-?-?-?-?-?-?-?-?-?-?- 30 -3 JV- no lof , vaginal bleeding, or dec fm. gbs collected. has some elevated fasting levels. discussed delivering at 39 weeks. 12/10/24 -?-?-?-?-?-?-?-?-?-?-?-?- 37w 0d 234 lb 6 oz 122/85 Nega tive -?-?-?-?-?-?-?-?-?-?-?-?- Negative 140 40 -?-?-?-?-?-?-?-?-?-?-?-?- KW- work in for JV. no vb/lof/ctx. good fm. US reviewed. would like 39 week IOL per note from last visit. 12/17/24 -?-?-?-?-?-?-?-?-?-?-?-?- 38w 0d 235 lb 8 oz 132/84 Nega tive -?-?-?-?-?-?-?-?-?-?-?-?- Negative 160 39 Cephalic -?-?-?-?-?-?-?-?-?-?-?-?- KW- no vb/lof/ct x. good fm. would like IOL on 12/28 due to her sister coming to town over the weekend. BS reviewed and 07/09 fastings under 95 12/25/24 -?-?-?-?-?-?-?-?-?-?-?-?- 39w 1d 235 lb 4 oz 140/83 136/84 136/84 Negative -?-?-?-?-?-?-?-?-?-?-?-?- Negative 140 40 Cephalic 2 -?-?-?-?-?-?-?-?-?-?-?-?- 40 -3 KW- no vb/ lof/ctx. good fm KW- no vb/lof/ctx. good fm. blood sugars controlled and denies FONSECA vison changes. ROS Constitutional Constitutional: Denies change in weight, fatigue, fever(s), headache(s), poor appetite or weakness Eyes Eyes: Denies blurry vision, change in vision, seeing flashes or spots in vision ENT HEENT: Denies dizziness, headache(s), loss taste/smell or sore throat Cardiovascular Cardiovascular: Denies chest pain, dizziness, dyspnea, irregular heart rhythm, leg edema, palpitations, rapid heart rate or vomiting Respiratory/Chest Respiratory/Chest: Denies chest tightness, cough, dyspnea or breast pain Gastrointestinal Gastrointestinal: Denies abdominal pain, anorexia, constipation, cramping, diarrhea, hemorrhoids, vomiting or weight changes Genitourinary Genitourinary: Denies dysuria, flank pain, genital lesions, genital pain, urinary frequency or urinary urgency Musculoskeletal Musculoskeletal: Denies back pain, difficulty walking, joint pain, limited range of motion, muscle cramps or numbness Integumentary Integumentary: Denies lesions or unusual bruising Neurologic Neurologic: Denies abnormal movements, abnormal speech, dizziness, numbness, seizure-like activity or syncope Psychiatric Psychiatric: Denies anxiety, behavioral changes, change in appetite, change in libido, cognitive impairment, confusion, depression, difficulty concentrating, hallucinations or suicidal thoughts Endocrine Endocrinology: Denies excessive sweating, polydipsia or polyuria Hematologic/Lymphatic Hematologic/Lymphatic: Denies easy bleeding, easy bruising or lymphadenopathy Allergic/Immunologic Allergic/Immunologic: Denies itchy eyes, lip swelling, seasonal rhinorrhea, rhinitis, throat swelling, tongue swelling, eczemia, wheezing or asthma Vital Signs Vital Signs Vital Signs: 12/28/24 07:55 12/28/24 07:55 12/28/24 07:55 Temperature Temperature Source Pulse Rate 79 Respiratory Rate Blood Pressure 136/79 H BP Systolic 136 BP Diastolic 79 Pulse Ox 98 12/28/24 07:55 12/28/24 07:55 12/28/24 07:55 Temperature 96.9 F L Temperature Source Temporal Pulse Rate Respiratory Rate 16 Blood Pressure BP Systolic BP Diastolic Pulse Ox Weight Weight: 236 lb 1.841 oz Body Mass Index (BMI) 39.2 Physical Exam Const alert, oriented x3, no apparent distress and healthy appearing General Appearance: cooperative; Negative for anxious HEENT normocephalic Face and Sinus: normal facial exam Eyes EOMs intact bilaterally and no scleral icterus General Eye: normal appearance of both eyes Neck full ROM and supple Lymph Lymphatic: no lymphadenopathy noted Chest Chest: abnormal inspection of the chest Resp normal respiratory effort Effort and Inspection: able to speak in complete sentences Cardio regular rate GI soft to palpation and non-tender Inspection: gravid Palpation: soft; Negative for tender external exam normal Amniotic Fluid: other cx is 1.5/40/-3 Back/Spine no CVA tenderness Extremity normal to inspection, full ROM and no clubbing, cyanosis or edema General Extremity: Negative for calf tenderness or edema Skin Lesions: no lesions Rashes: no rashes Psych mental status grossly normal Labs Labs Labs: Blood Type A POSITIVE Antibody Screen NEGATIVE Hct 34.8 % (37-47) L Hgb 11.9 g/dL (12.0-15.0) L Pap Smear Negative Obstetrics Ultrasound Syphilis Total Ab Non-reactive Rubella IgG Antibody Reactive (Nonreactive) Hep Bs Antigen Non-Reactive (Nonreactive) Hepatitis C Antibody Non-Reactive (Nonreactive) Hepatitis C Ab (EIA) Non Reactive (Non Reactive) Chlamydia DNA (FRANCIE) Negative (Negative) N.gonorrhoeae DNA (FRANCIE) Negative (Negative) HIV 1&2 Antibody Non-Reactive (Nonreactive) Glucose 1 Hr 50 gm 164 mg/dL (70-140) H Gest Glucose Tolerance MG/DL Miscellaneous Test Assessment & Plan (1) Positive GBS test: COMMENT: allergic to pcn G, resistant to clinda. will need vanc in labor (2) Acid reflux: (3) Gestational diabetes: COMMENT: QID testing, refer dietitian. 36 wk US EFW 72%, AC 92% (4) Advanced maternal age in multigravida: COMMENT: growth/RYANN US @ 36 wk/pt req [facility], deliver at 39 (5) Hx of maternal laceration, 3rd degree, currently : (6) Obesity affecting : COMMENT: BMI 34, nl HgA1c, encouraged healthy weight gain (7) Supervision of high-risk : COMMENT: PRR , OLEKSANDR 12/31/24, PORSCHE Alfonso, Negro (8) : QUALIFIERS: Weeks of gestation: 39 weeks Qualified Code(s): Z3A.39 - 39 weeks gestation of COMMENT: low risk NIPT, carrier declined. afp ordered, nl anatomy (9) History of vacuum extraction assisted delivery: (10) History of gestational hypertension: COMMENT: PIH labs , ASA PLAN: Plan Patient presents IOL, plan management for with pitocin/nichole Pain management: plans epidural. GBS positive- vanc. Management of any complications: none I have reviewed the [facility] and made any clinically relevant updates.
[2024-12-28 08:14] LABS: Absolute Lymphocyte Count 1.97 X10^3/uL (0.83-4.51); Absolute Neutrophil Count 6.6 X10^3/uL (2.0-7.7); Basophil# 0.04 X10^3/uL; Basophil% 0.4 % (0-1); Eosinophil# 0.21 X10^3/uL; Eosinophils% 2.1 % (0-5); Hematocrit 31.9 % (37-47); Hemoglobin 10.8 g/dL (12.0-15.0); Lymphocyte # 1.97 X10^3/ul (0.83-4.51); Mean Corp Hgb Conc 33.9 g/dL (32-36); Mean Corpuscular Volume 82.6 fL (81-99); Mean Platelet Vol. 9.3 fl (6.2-12.0); Monocyte# 0.98 X10^3/uL; Monocyte% 9.9 % (0-10); NRBC Flagged by Analyzer 0 % (0-5); Neutrophil # 6.61 X10^3/uL (2.7-7.7); Platelet Count 294 K/mm3 (150-450); RBC Distribution Width CV 13.3 % (11.6-14.6); RBC Distribution Width SD 39.9 fl (35.1-43.9); Red Blood Count 3.86 M/mm3 (4.2-5.4); White Blood Count 9.9 K/mm3 (4.4-11.0)
[2024-12-28 08:29] LABS: Bedside Glucose 81 mg/dL (74-106)
[2024-12-28] MEDS: Oxytocin 15 Units/NS 250ml 15 UNITS/250 ML IV.SOLN 2 UNITS IV (08:30)
[2024-12-28] MEDS: 0.9% Normal Saline Single 100 ML IV.SOLN. INTRA-UTER (08:51)
[2024-12-28 09:08] LABS: Syphilis Antibodies Nonreactive (Nonreactive)
[2024-12-28 09:44] LABS: Bedside Glucose 83 mg/dL (74-106)
[2024-12-28] MEDS: Vancomycin HCl 2,000 MG in 0.9% Normal Saline (500mL Bag) 500 ML 250 MG IV (11:09)
--- NOTE | 2024-12-28 12:22 | PN.OBGYN_ITS ---
Subjective Subjective patient is laying in bed comfortably. She consents to AROM and FSE and wants an epidural soon. current tracing: FHT: Moderate variability reactive no decelerations category I tracing [place]: q 2 min Contractions cx: 5/80/-1, large gush of meconium stained fluid present FSE applied reviewed tracing abnormalities since last note: no changes A/P: GDM and AMA continue pitocin and vanc epidural next Objective Data Objective Data Vital Signs: Vital Signs Temp Pulse Resp BP Pulse Ox 97.4 F L 85 16 131/73 H 98 12/28/24 11:05 12/28/24 11:05 12/28/24 11:05 12/28/24 11:05 12/28/24 07:55 Weight: 236 lb 1.841 oz Body Mass Index (BMI) 39.2 Lab / Micro Data 12/28/24 07:45 Labs: Laboratory Results - last 24 hr 12/28/24 07:45: WBC 9.9, RBC 3.86 L, Hgb 10.8 L, Hct 31.9 L, MCV 82.6, MCH 28.0, MCHC 33.9, RDW Std Deviation 39.9, RDW Coeff of Erick 13.3, Plt Count 294, MPV 9.3, Immature Gran % (Auto) 0.600, Neut % (Auto) 67.0, Lymph % (Auto) 20.0, Wilbarger % (Auto) 9.9, Eos % (Auto) 2.1, Baso % (Auto) 0.4, Absolute Neuts (auto) 6.6, Absolute Lymphs (auto) 1.97, Nucleated RBC % 0, Syphilis Total Ab Nonreactive, Blood Type A POSITIVE, Antibody Screen NEGATIVE 12/28/24 08:09: POC Glucose 81 12/28/24 09:23: POC Glucose 83
[2024-12-28] MEDS: Lactated Ringers 1,000 ML 999 ML IV (12:30)
[2024-12-28 13:56] LABS: Bedside Glucose 70 mg/dL (74-106)
[2024-12-28] MEDS: fentaNYL-bupivacaine (epidural) 100 ML BAG EPIDURAL (14:06)
--- NOTE | 2024-12-28 15:25 | PCM.RX.CS ---
Consult Antibiotic Management Pharmacy has been consulted to manage selected antibiotic: Vancomycin Type of Intervention Type of Consult: New start Suspected Infection Suspected Infection: Other (GBS INFECTION) Prior Doses of Antibiotics Prior Doses of Antibiotics Received/Current Regimen: Vancomycin 2000 mg Q8H first dose given 12/28/24 @ 1109 Dosing Weight Weight used for dosin kg Goal Trough Goal Trough: 10-15 mcg/mL Pharmacy Plan for Drug Dosing Pharmacy Plan for Drug Dosing: Vancomycin 2000 mg Q8H, trough prior to 4th dose, pending renal function prior to second dose. Pharmacy Service will continue to monitor and adjust dosing as required. Follow-Up Labs Follow-Up Labs: Trough: Vancomycin Date/Time Labs Ordered Labs to be done on [date and time ordered]: 12/29/24 @ 1030
[2024-12-28 15:31] LABS: Bedside Glucose 77 mg/dL (74-106)
[2024-12-28 15:56] LABS: Bedside Glucose 64 mg/dL (74-106)
[2024-12-28 16:57] LABS: Bedside Glucose 78 mg/dL (74-106)
[2024-12-28 17:06] LABS: Creatinine, Serum 0.58 mg/dL (0.70-1.20); EST Glomerular Filtration Rate 120 (>60); Estimated Creatinine Clearance 163.08 ml/min (50-250)
--- NOTE | 2024-12-28 17:59 | OB.VAGDELI_ITS ---
Assessment & Plan (1) Positive GBS test: COMMENT: allergic to pcn G, resistant to clinda. will need vanc in labor (2) Gestational diabetes: COMMENT: QID testing, refer dietitian. 36 wk US EFW 72%, AC 92% (3) Advanced maternal age in multigravida: COMMENT: growth/RYANN US @ 36 wk/pt req [facility], deliver at 39 (4) Hx of maternal laceration, 3rd degree, currently : (5) Obesity affecting : COMMENT: BMI 34, nl HgA1c, encouraged healthy weight gain (6) Supervision of high-risk : COMMENT: PRR , OLEKSANDR 12/31/24, PC Alfonso, Negro (7) : QUALIFIERS: Weeks of gestation: 39 weeks Qualified Code(s): Z3A.39 - 39 weeks gestation of COMMENT: low risk NIPT, carrier declined. afp ordered, nl anatomy (8) History of vacuum extraction assisted delivery: (9) History of gestational hypertension: COMMENT: PIH labs , ASA Maternal Data Information OLEKSANDR Calculator Estimated Delivery Date Method Current WG Current Estimate 12/31/24 LMP (Certain) 39w 4d Other Estimates 01/02/25 Ultrasound #1 39w 2d Final OLEKSANDR: 12/31/24 Gestational age: 39 weeks 4 days Doctor Who Attended Delivery: Stef Valdez Vaginal Delivery Maternal Presentation Maternal Presentation: Medically Indicated Induction Type of Induction: Pitocin, Covarrubias Bulb and Amniotomy Vaginal Delivery Information Procedure Performed: Spontaneous Vaginal Delivery Surgeon/Practitioner: Padmini Box Date of Procedure: 12/28/24 Pre-Procedure Diagnosis: gestational diabetes and advanced maternal age 39 weeks Post-Procedure Diagnosis: gestational diabetes and advanced maternal age 39 weeks Type of anesthesia: Epidural Estimated Blood Loss: 300cc Time of Delivery: 17:25 Findings Description of procedure: Patient began pushing and delivered the head in the MAURICIO presentation. The head was delivered atraumatically and a loose nuchal cord ?1 was identified and easily reduced over the 's head. The anterior and posterior shoulders delivered without complication followed by the rest of the and the infant was placed on the maternal abdomen. Delayed cord clamping was employed for approximately 60 seconds. Cord was clamped and cut and gentle traction was applied to the cord and the placenta delivered spontaneously immediately following it was noted to be intact with three-vessel cord. The perineum and vagina were inspected and noted to have a 2nd degree perineal laceration. This was repaired using a 2-0 vicryl. EBL was 300cc. Patient and tolerated delivery well. Procedure findings: viable male infant, [place] Presentation: Vertex Amniotic Membrane Rupture Type: Artificial Amniotic Fluid Description: Moderate meconium Placenta Disposition: [facility] Specimen collected: No Cord Vessel Description: 3 Vessels Cord Entanglement: Around neck x 1, loose Nuchal Cord Compression: Without compression Infant A Gender: Male (1 minute): 8 (5 minute): 9 Delayed Cord Clamping: Yes Trimmer Helper analysis lead: No Post Vaginal Deli Medications given after delivery: IV Pitocin Episiotomy Description: None Laceration: 2nd degree Complication Complications: No Multi Select Codes Urinary/Genital Urinary/Genital CPT Codes: 32887 Vaginal Delivery [facility]
[2024-12-28] MEDS: Oxytocin 15 Units/NS 250ml 15 UNITS/250 ML IV.SOLN 83 UNITS IV (18:03)
[2024-12-29 00:36] VITALS: BP 134/79; PULSE 88; RESP 16; TEMP 36.7; O2SAT 99
[2024-12-29] MEDS: Benzocaine/Lanolin/Aloe Vera 85 GM Spray 1 SPRAY TOPICAL (00:44)
[2024-12-29] MEDS: Senna/Docusate Sodium 1 Tablet PO (00:44)
[2024-12-29] MEDS: Ibuprofen 600 MG Tablet PO ×3 (00:44→15:47)
[2024-12-29 01:02] LABS: Bedside Glucose 76 mg/dL (74-106)
[2024-12-29 04:45] VITALS: BP 113/64; PULSE 66; RESP 16; TEMP 36.4; O2SAT 98
[2024-12-29 06:04] LABS: Bedside Glucose 85 mg/dL (74-106)
[2024-12-29 08:34] VITALS: BP 138/82; PULSE 83; RESP 16; TEMP 36.1; O2SAT 97
--- NOTE | 2024-12-29 08:40 | PN.OBGYN_ITS ---
Subjective Subjective Patient doing well without complaints. Tolerating PO. Ambulating and voiding without difficulty. Feeding well. Denies chest pain, shortness of breath, calf pain/swelling, fevers, chills, lightheadedness. Objective Data Objective Data Vital Signs: Vital Signs Temp Pulse Resp BP Pulse Ox O2 Del Method 97.0 F L 83 16 138/82 H 97 Room Air 12/29/24 08:34 12/29/24 08:34 12/29/24 08:34 12/29/24 08:34 12/29/24 08:34 12/29/24 08:34 Oxygen Delivery Method Room Air Weight: 236 lb 1.841 oz Body Mass Index (BMI) 39.2 Intake & Output: Intake and Output for Last 24 Hours 12/27/24 12/28/24 12/29/24 23:59 23:59 23:59 Intake Total 3040.00 / 3040.00 Output Total 700 / 700 Balance 2340.00 / 2340.00 Lab / Micro Data Attestation: I reviewed the patient's lab results. 12/28/24 07:45 12/28/24 16:00 Labs: Laboratory Results - last 24 hr 12/28/24 07:45: Syphilis Total Ab Nonreactive, Blood Type A POSITIVE, Antibody Screen NEGATIVE 12/28/24 09:23: POC Glucose 83 12/28/24 13:30: POC Glucose 70 L 12/28/24 14:28: POC Glucose 77 12/28/24 15:25: POC Glucose 64 L 12/28/24 16:00: Creatinine 0.58 L, Estim Creat Clear Calc 163.08, Est GFR (MDRD) Non-Af 120 12/28/24 16:35: POC Glucose 78 12/28/24 17:38: POC Glucose 76 12/29/24 05:42: POC Glucose 85 ROS Constitutional Constitutional: Reports systems reviewed and no addt'l complaints, except as documented; Denies anorexia or headache(s) Cardiovascular Cardiovascular: Reports systems reviewed and no addt'l complaints, except as documented; Denies dizziness, dyspnea, nausea or tachypnea Respiratory/Chest Respiratory/Chest: Reports systems reviewed and no addt'l complaints, except as documented; Denies cough, dyspnea, shortness of breath at rest or tachypnea Gastrointestinal Gastrointestinal: Reports systems reviewed and no addt'l complaints, except as documented; Denies abdominal pain, constipation or nausea Genitourinary Genitourinary: Reports systems reviewed and no addt'l complaints, except as documented; Denies burning urination, difficulty urinating, dysuria, urinary frequency or urinary incontinence Musculoskeletal Musculoskeletal: Reports systems reviewed and no addt'l complaints, except as documented Integumentary Integumentary: Reports systems reviewed and no addt'l complaints, except as documented Neurologic Neurologic: Reports systems reviewed and no addt'l complaints, except as documented; Denies abnormal speech, dizziness or headache(s) Psychiatric Psychiatric: Reports systems reviewed and no addt'l complaints, except as documented Endocrine Endocrinology: Reports systems reviewed and no addt'l complaints, except as documented Hematologic/Lymphatic Hematologic/Lymphatic: Reports systems reviewed and no addt'l complaints, except as documented Physical Exam Const alert, oriented x3 and no apparent distress Neck full ROM Resp normal respiratory effort, normal air movement and no retractions Effort and Inspection: able to speak in complete sentences and symmetric chest movement GI soft to palpation Bladder / Kidney Exam: bladder normal to palpation Uterus Palpation: uterus fundus firm Extremity normal to inspection and full ROM Psych mental status grossly normal, thought process normal and cooperative Assessment & Plan (1) Vaginal delivery: COMMENT: JV (2) Positive GBS test: COMMENT: allergic to pcn G, resistant to clinda. will need vanc in labor (3) Acid reflux: (4) Gestational diabetes: COMMENT: QID testing, refer dietitian. 36 wk US EFW 72%, AC 92% (5) Advanced maternal age in multigravida: COMMENT: growth/RYANN US @ 36 wk/pt req [facility], deliver at 39 (6) Hx of maternal laceration, 3rd degree, currently : (7) Obesity affecting : COMMENT: BMI 34, nl HgA1c, encouraged healthy weight gain (8) Supervision of high-risk : COMMENT: PRR , OLEKSANDR 12/31/24, PORSCHE Alfonso, Negro (9) : QUALIFIERS: Weeks of gestation: 39 weeks Qualified Code(s): Z 3A.39 - 39 weeks gestation of COMMENT: low risk NIPT, carrier declined. afp ordered, nl anatomy (10) History of vacuum extraction assisted delivery: (11) History of gestational hypertension: COMMENT: PIH labs , ASA Charges/Coding Multi Select Codes Urinary/Genital Urinary/Genital CPT Codes: No Charge
[2024-12-29 14:52] VITALS: BP 128/80; PULSE 75; RESP 16; TEMP 36.6; O2SAT 97
[2024-12-29 19:35] VITALS: BP 132/73; PULSE 86; RESP 16; TEMP 36.4; O2SAT 98
[2024-12-29] MEDS: Acetaminophen 500 MG Tablet 1000 MG PO (19:50)
[2024-12-30 01:03] VITALS: BP 125/71; PULSE 76; RESP 14; TEMP 36.4; O2SAT 99
--- NOTE | 2024-12-30 07:49 | PCM.PN.OB ---
Subjective Subjective Patient doing well without complaints. Tolerating PO. Ambulating and voiding without difficulty. Feeding well. Denies chest pain, shortness of breath, calf pain/swelling, fevers, chills, lightheadedness. Objective Data Objective Data Vital Signs: Vital Signs Temp Pulse Resp BP Pulse Ox O2 Del Method 97.5 F L 76 14 125/71 H 99 Room Air 12/30/24 01:03 12/30/24 01:03 12/30/24 01:03 12/30/24 01:03 12/30/24 01:03 12/30/24 01:03 Oxygen Delivery Method Room Air Weight: 236 lb 1.841 oz Body Mass Index (BMI) 39.2 Intake & Output: Intake and Output for Last 24 Hours 12/28/24 12/29/24 12/30/24 23:59 23:59 23:59 Intake Total 3040.00 / 3040.00 Output Total 700 / 700 Balance 2340.00 / 2340.00 Lab / Micro Data 12/28/24 07:45 12/28/24 16:00 Physical Exam Const alert and oriented x3 HEENT normocephalic Eyes PERRL Neck full ROM Resp normal respiratory effort GI soft to palpation GI Narrative: FF below U Assessment & Plan (1) Vaginal delivery: COMMENT: 12/28/24 Dotty BERNABE GDM (2) Gestational diabetes: QUALIFIERS: Gestational diabetes mellitus control: diet-controlled Trimester: unspecified trimester Qualified Code(s): O24.410 - Gestational diabetes mellitus in , diet controlled COMMENT: diet controlled. Stable pp PLAN: Plan s/p PPD # 2 1. routine post delivery care 2. breast feeding- support given 3. rh positive 4. rubella immune 5. home today
[2024-12-30 07:55] VITALS: BP 124/70; PULSE 91; RESP 16; O2SAT 98
== END 2024-12-30 11:20 | disposition home or self-care (01) | DRG 807 ==
PROVIDERS: Admitting Provider Obstetrics & Gynecology; PCP Nurse Practitioner Family; Referring Provider Obstetrics & Gynecology; Visit Provider Obstetrics & Gynecology
DX: O24.410 Gestational diabetes mellitus in pregnancy, diet controlled (principal); Z37.0 Single live birth; E66.9 Obesity, unspecified; K21.9 Gastro-esophageal reflux disease without esophagitis; O99.214 Obesity complicating childbirth; O77.0 Labor and delivery complicated by meconium in amniotic fluid; O70.1 Second degree perineal laceration during delivery; Z3A.39 39 weeks gestation of pregnancy; O99.824 Streptococcus B carrier state complicating childbirth; O69.81X0 Labor and delivery complicated by cord around neck, without compression, not applicable or unspecified; O99.62 Diseases of the digestive system complicating childbirth; Z88.0 Allergy status to penicillin; Z79.82 Long term (current) use of aspirin
CPT/HCPCS: 59025; 59050; 82565; 82962; 85025; 86780; 86850; 86900; 86901; 99221; G0378